=== PATIENT | female | born 1960 | race Caucasian/White ===

== ENCOUNTER 2021-02-12 15:50 | Emergency (ER) | payer MEDICAID, SELFPAY ==
[2021-02-12 15:52] VITALS: BP 127/63; PULSE 84; RESP 16; TEMP 36.7; O2SAT 97; BMI 21.2
--- NOTE | 2021-02-12 15:54 | EKG12_ITS ---
Test Reason : CP Blood Pressure : / mmHG Vent. Rate : 081 BPM Atrial Rate : 081 BPM P-R Int : 126 ms QRS Dur : 090 ms QT Int : 376 ms P-R-T Axes : 072 -22 041 degrees QTc Int : 436 ms Normal sinus rhythm with sinus arrhythmia Nonspecific ST and T wave abnormality Abnormal ECG Confirmed by LEE ROSARIO, MAIK ([id number]), dictionary editor MAGALY KELLY ([id number]) on 02/14/2021 9:07:21 AM Referred By: Confirmed By:MAIK HOWARD MD
[2021-02-12 16:06] LABS: Absolute Lymphocyte Count 3.35 X10^3/uL (0.83-4.51); Absolute Neutrophil Count 5.9 X10^3/uL (2.0-7.7); Basophil# 0.06 X10^3/uL; Basophil% 0.6 % (0-1); Eosinophil# 0.11 X10^3/uL; Eosinophils% 1.1 % (0-5); Hematocrit 42.1 % (37-47); Hemoglobin 14.1 g/dL (12.0-15.0); Lymphocyte # 3.35 X10^3/ul (0.83-4.51); Lymphocyte % 33.7 % (19-41); Mean Corp Hgb Conc 33.5 g/dL (32-36); Mean Corpuscular Hgb 30.9 pg (27.0-32.0); Mean Corpuscular Volume 92.3 fL (81-99); Mean Platelet Vol. 8.5 fl (6.2-12.0); Monocyte# 0.56 X10^3/uL; Monocyte% 5.6 % (0-10); NRBC Flagged by Analyzer 0 % (0-5); Neutrophil # 5.85 X10^3/uL (2.7-7.7); Neutrophil % 58.9 % (47-70); Platelet Count 294 K/mm3 (150-450); RBC Distribution Width CV 12.9 % (11.6-14.6); RBC Distribution Width SD 43.7 fl (35.1-43.9); Red Blood Count 4.56 M/mm3 (4.2-5.4); White Blood Count 9.9 K/mm3 (4.4-11.0)
--- NOTE | 2021-02-12 16:14 | RAD_ITS ---
STUDY: X-RAY CHEST REASON FOR EXAM: Female, 60 years old. Chest pain TECHNIQUE: Frontal view COMPARISON: None. FINDINGS: The lungs are clear and expanded. There is no demonstrated pleural abnormality. Normal size heart. Normal mediastinum and carmen. Normal visualized pulmonary arteries. Normal visualized aortic arch and descending thoracic aorta. Normal visualized thoracic spine. Normal visualized ribs, clavicles, and shoulders. There is no demonstrated abnormality of the visualized soft tissue structures of the upper abdomen. RAD/Chest 1 View (Portable) IMPRESSION: Normal x-ray examination of the chest. Electronically Signed: Albaro Donald DO at 16:36 EDT Tel [phone], Service support ,
[2021-02-12 16:25] LABS: Anion Gap 4 (5-15); BUN 8 mg/dL (7-18); Calcium,Total 8.9 mg/dL (8.5-10.1); Chloride 113 mmol/L (98-107); Creatinine, Serum 0.54 mg/dL (0.55-1.02); EST Glomerular Filtration Rate 123 mL/min (>60); Est Glom Filt Rate - Afr Amer 148 mL/min (>60); Estimated Creatinine Clearance 89.35 ml/min; Glucose 88 mg/dL (74-106); Potassium 3.7 mmol/L (3.5-5.1); Sodium Level 140 mmol/L (136-145); Troponin-I HS 44 pg/mL (3.0-54.0)
--- NOTE | 2021-02-12 16:25 | ED.VIS.CHEST ---
HPI History of Present Illness Chief Complaint: Chest Pain Narrative Narrative: Patient presenting with dyspepsia and excessive belching. She also complains of left-sided chest twinging which sometimes radiates to the right. She does not feel short of breath. She does not have vomiting but states he is mildly nauseous. Patient denies fever, chills, cough. Patient has history of NC with 4 cardiac stents 3 years ago. She states her last stress test was in May 2020 and she believes this was normal. 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 She states that her primary care provider has been following her. Patient took a baby aspirin this morning and then took 325 mg prior to arrival. She states that this feels similar to when she presented for her previous NC. [facility] Medical History (Updated 02/12/21 @ 16:30 by Shoshana Linares) Cholecystectomy planned Hypercholesteremia Myocardial infarct Home Medications metoprolol succinate 12.5 mg PO DAILY 02/12/21 [History Last Taken Unknown] rosuvastatin 20 mg PO DAILY 02/12/21 [History Last Taken Unknown] terbinafine HCl 250 mg PO DAILY 02/12/21 [History Last Taken Unknown] Allergy/AdvReac Type Severity Reaction Status Date / Time No Known Allergies Allergy Verified 02/12/21 15:51 Social History Smoking Status: Current every day smoker tobacco type: cigarettes ROS ROS ED Constitutional Constitutional ED: Denies chills or fever(s) Eyes Eyes: Denies blurry vision or change in vision ENT ENT ED: Denies rhinorrhea or sore throat Cardiovascular Cardiovascular: Reports chest pain Respiratory/Chest Respiratory/Chest: Denies cough or dyspnea Gastrointestinal Gastrointestinal: Reports nausea and other Details: Dyspepsia ; Denies abdominal pain Genitourinary Genitourinary ED: Denies dysuria or hematuria Musculoskeletal Musculoskeletal: Denies arthralgias, back pain, myalgias or neck pain Integumentary Denies Abrasions or rash Neurologic Neurologic: Denies headache(s) or paresthesias EXAM Physical Exam Const Vital Signs: 02/12/21 15:52 02/12/21 16:26 02/12/21 16:30 Temperature 98.1 F Temperature Source Temporal Pulse Rate 84 Respiratory Rate 16 Respiratory Effort Normal Non-Labored Blood Pressure 127/63 H Blood Pressure Mean 84 Pulse Ox 97 Oxygen Delivery Method Room Air Room Air 02/12/21 16:50 02/12/21 17:00 02/12/21 18:46 Temperature Temperature Source Pulse Rate 73 73 72 Respiratory Rate 14 16 15 Respiratory Effort Blood Pressure 92/61 124/74 H 132/69 H Blood Pressure Mean 71 90 90 Pulse Ox 98 98 98 Oxygen Delivery Method Room Air Room Air Room Air 02/12/21 19:14 Temperature Temperature Source Pulse Rate 68 Respiratory Rate 16 Respiratory Effort Blood Pressure 112/69 Blood Pressure Mean Pulse Ox 98 Oxygen Delivery Method Positive well nourished General Appearance ED: NAD; Negative for pallor HEENT normocephalic and atraumatic Eyes PERRL and EOMs intact bilaterally General Eye ED: Negative for pale conjunctiva or scleral icterus Chest Wall inspection of chest normal and palpation of chest normal Resp normal respiratory effort Effort and Inspection: respiratory distress Cardio regular rate and regular rhythm Extremity normal to inspection General Extremety ED: Negative for edema or tenderness General Extremity: Negative for edema Neuro oriented x3 Sensorium / Orientation: awake and alert Psych mental status grossly normal Skin no rashes or lesions noted and no wounds General Skin Exam: Negative for jaundice or pallor Heart Score History: Slightly/Non-Suspicious Age: >45 - <65 years Risk Factors: >/= 3 Risk Factors or History of CAD Score: 3 MDM MDM MDM Narrative Medical decision making narrative: Patient presenting twinging chest pain and dyspepsia. She is concerned of a cardiac event. She has history of CAD and cardiac stents distantly. She is not having chest pressure or sharp pain. Her EKG is sinus rhythm with a ventricular rate of [address]-T wave changes. Right groin access CBC and BMP are unremarkable. High-sensitivity troponin x2 are both 44. There is no significant change. Patient was given a GI cocktail without much relief. She is counseled at this time with 2 - troponins that this is likely not cardiac in nature. She is comfortable with this result and will be discharged home in stable condition. She is counseled to follow-up with her PCP on an outpatient basis. If she has new or worsening symptoms she should return to the ED. Impression: 1. Dyspepsia 2. Chest pain Lab Data Attestation: I reviewed the patient's lab results. Labs: Laboratory Results - last 24 hr 02/12/21 02/12/21 02/12/21 16:00 16:00 18:04 WBC 9.9 RBC 4.56 Hgb 14.1 Hct 42.1 MCV 92.3 MCH 30.9 MCHC 33.5 RDW Std Deviation 43.7 RDW Coeff of Casey 12.9 Plt Count 294 MPV 8.5 Immature Gran % (Auto) 0.100 Neut % (Auto) 58.9 Lymph % (Auto) 33.7 [place] % (Auto) 5.6 Eos % (Auto) 1.1 Baso % (Auto) 0.6 Absolute Neuts (auto) 5.9 Absolute Lymphs (auto) 3.35 Nucleated RBC % 0 Sodium 140 Potassium 3.7 Chloride 113 H Carbon Dioxide 23.0 Anion Gap 4 L BUN 8 Creatinine 0.54 L Estim Creat Clear Calc 89.35 Est GFR (MDRD) Af Amer 148 Est GFR (MDRD) Non-Af 123 BUN/Creatinine Ratio 15.0 Glucose 88 Calcium 8.9 Troponin I High Sens 44 44 Radiography Diagnostic Testing: Radiology Impression Chest X-Ray 02/12/21 16:14 IMPRESSION: Normal x-ray examination of the chest. Electronically Signed: Albaro Donald DO at 16:36 EDT Tel [phone], Service support , Discharge Plan Triage Chief Complaint: Chest Pain ED Provider: Darnell Arnett Dx/Rx/DC Orders Instructions: ED Chest Pain, Noncardiac Prescriptions: No Action terbinafine HCl 250 mg tablet 250 mg PO DAILY RF: 0 metoprolol succinate 25 mg tablet extended release 24 hr 12.5 mg PO DAILY RF: 0 rosuvastatin 20 mg tablet 20 mg PO DAILY RF: 0 Primary Care Provider: Bethany Gonzalez NP Referrals: Betahny Gonzalez NP, [employer] [Primary Care Provider] - Disposition Disposition: Home, Self Care Discharge Date/Time: 02/12/21 19:15
[2021-02-12] MEDS: Mag Hydrox/Al Hydrox/Simeth 30 ML UDC PO (16:41)
[2021-02-12 16:50] VITALS: BP 92/61; PULSE 73; RESP 14; O2SAT 98
[2021-02-12 17:00] VITALS: BP 124/74; PULSE 73; RESP 16; O2SAT 98
[2021-02-12 18:28] LABS: Troponin-I HS 44 pg/mL (3.0-54.0)
[2021-02-12 18:46] VITALS: BP 132/69; PULSE 72; RESP 15; O2SAT 98
[2021-02-12 19:14] VITALS: BP 112/69; PULSE 68; RESP 16; O2SAT 98
== END 2021-02-12 19:15 | disposition home or self-care (01) ==
PROVIDERS: Emergency Provider Student in an Organized Health Care Education/Training Program; PCP Nurse Practitioner Family
DX: R10.13 Epigastric pain (principal); R07.9 Chest pain, unspecified; F17.210 Nicotine dependence, cigarettes, uncomplicated; I25.2 Old myocardial infarction; E78.00 Pure hypercholesterolemia, unspecified; Z95.5 Presence of coronary angioplasty implant and graft; Z79.899 Other long term (current) drug therapy
CPT/HCPCS: 71045; 80048; 84484; 85025; 93005; 99284; A4216